=== PATIENT | male | born 1960 | race Caucasian/White ===

== ENCOUNTER 2017-06-18 10:00 | Outpatient (RCR) | payer OTHER | END 2017-07-30 17:53 | disposition home or self-care (01) | LOC: PT 10:00 | DX: M75.101 Unspecified rotator cuff tear or rupture of right shoulder, not specified as traumatic (principal) ==

== ENCOUNTER → 2017-08-12 | Outpatient (CLI) | payer OTHER | LOC: LAB 09:32 | DX: Z00.00 Encounter for general adult medical examination without abnormal findings (principal); Z12.5 Encounter for screening for malignant neoplasm of prostate; Z12.11 Encounter for screening for malignant neoplasm of colon ==

== ENCOUNTER → 2018-03-16 | Outpatient (CLI) | payer OTHER ==
[2018-03-16 14:17] LABS: URINE APPEARANCE CLEAR; URINE BILIRUBIN NEGATIVE (NEGATIVE); URINE BLOOD NEGATIVE (NEGATIVE); URINE COLOR YELLOW; URINE GLUCOSE NEGATIVE (NEGATIVE); URINE KETONE NEGATIVE (NEGATIVE); URINE LEUKOCYTE ESTERASE NEGATIVE (NEGATIVE); URINE NITRATE NEGATIVE (NEGATIVE); URINE PROTEIN(semi-quant) NEGATIVE (NEGATIVE); URINE UROBILINOGEN NORMAL (NORMAL)
== END ==
LOC: LAB 13:25
PROVIDERS: Internal Medicine
DX: R35.0 Frequency of micturition (principal)

== ENCOUNTER → 2018-03-18 | Outpatient (CLI) | payer OTHER ==
[2018-03-18 11:13] LABS: BUN/CREATININE RATIO 29.9 (6.0-26.0); CALCIUM 9.2 mg/dL (8.4-10.2); POTASSIUM 4.1 mmol/L (3.6-5.0)
== END ==
LOC: LAB 10:51
PROVIDERS: Internal Medicine
DX: R73.02 Impaired glucose tolerance (oral) (principal)

== ENCOUNTER 2018-07-01 09:00 | Outpatient (RCR) | payer OTHER | END 2018-07-01 09:30 | disposition home or self-care (01) | LOC: PT 09:00 | DX: M75.121 Complete rotator cuff tear or rupture of right shoulder, not specified as traumatic (principal) ==

== ENCOUNTER → 2018-12-03 | Outpatient (CLI) | payer OTHER ==
[2018-12-03 10:21] LABS: URINE APPEARANCE CLEAR; URINE BILIRUBIN NEGATIVE (NEGATIVE); URINE BLOOD NEGATIVE (NEGATIVE); URINE COLOR YELLOW; URINE GLUCOSE NEGATIVE (NEGATIVE); URINE KETONE NEGATIVE (NEGATIVE); URINE LEUKOCYTE ESTERASE NEGATIVE (NEGATIVE); URINE NITRATE NEGATIVE (NEGATIVE); URINE PROTEIN(semi-quant) TRACE mg/dL (NEGATIVE); URINE UROBILINOGEN NORMAL (NORMAL); URINE WBC 0-1 /hpf (0-3)
== END ==
LOC: LAB 09:12
PROVIDERS: Internal Medicine
DX: Z00.00 Encounter for general adult medical examination without abnormal findings (principal)

== ENCOUNTER → 2019-02-04 | Outpatient (CLI) | payer OTHER | LOC: LAB 07:03 | DX: R97.20 Elevated prostate specific antigen [PSA] (principal) ==

== ENCOUNTER → 2019-03-24 | Outpatient (CLI) | payer OTHER ==
[~2019-03-24] VITALS: Ht 185.4 cm; Wt 100.0 kg
[~2019-03-24] MED LIST: ACETAMINOPHEN-H1 TA2 PO; DONNATAL1 TAB PO; IBU800 M1 PO; LISINOPRIL AND1 TA1 PO; ROSUVASTATIN CA20 MG PO; TESTOSTERO200 MG/1 M IM; ZOLPIDEM TART10 MG PO
[2019-03-24 14:20] LABS: URINE WBC 0 /hpf (0-3)
[2019-03-24 14:22] LABS: BASO # 0.1 (0.02-0.10); EOS # 0.1 (0.04-0.40); EOS % 1.4 % (0.0-4.0); HEMATOCRIT 45.3 % (42.0-52.0); HEMOGLOBIN 14.6 g/dL (13.5-18.0); LYMPH# 1.4 (1.50-4.00); MEAN CELL VOLUME 90 fl (78-100); MEAN CORPUSCULAR HEMOGLOBIN 29 pg (27-31); MEAN CORPUSCULAR HGB CONC 32 g/dL (33-37); MEAN PLATELET VOLUME 10.1 fl (7.4-10.4); MONO # 0.7 (0.20-0.80); NEU # 4.9 (1.40-6.50); PLATELET COUNT 269 K/mm3 (130-400); RED BLOOD COUNT 5.01 M/mm3 (4.20-5.60); RED CELL DISTRIBUTION WIDTH 14.1 % (11.5-14.5); WHITE BLOOD COUNT 7.2 K/mm3 (4.8-10.8)
[2019-03-24 15:26] LABS: ALBUMIN 4.2 g/dL (3.5-5.0); CALCIUM 10.6 mg/dL (8.4-10.2); POTASSIUM 4.1 mmol/L (3.5-5.1); TOTAL BILIRUBIN 0.4 mg/dL (0.2-1.2)
[2019-03-24 15:28] LABS: PROTHROMBIN TIME 8.9 SECONDS (9.0-12.0)
[2019-03-24 15:34] VITALS: BP 117/78
[2019-03-24 17:06] LABS: URINE APPEARANCE CLEAR; URINE BILIRUBIN NEGATIVE (NEGATIVE); URINE BLOOD NEGATIVE (NEGATIVE); URINE COLOR YELLOW; URINE GLUCOSE NEGATIVE (NEGATIVE); URINE KETONE NEGATIVE (NEGATIVE); URINE LEUKOCYTE ESTERASE NEGATIVE (NEGATIVE); URINE NITRATE NEGATIVE (NEGATIVE); URINE PROTEIN(semi-quant) NEGATIVE (NEGATIVE); URINE UROBILINOGEN NORMAL (NORMAL)
== END ==
LOC: AMSURD 14:10
PROVIDERS: Internal Medicine
DX: Z01.818 Encounter for other preprocedural examination (principal); M16.11 Unilateral primary osteoarthritis, right hip

== ENCOUNTER 2019-05-04 10:00 | Outpatient (RCR) | payer OTHER ==
[2019-03-24 15:34] VITALS: BP 117/78
== END 2019-05-04 10:30 | disposition still patient (30) ==
LOC: PT 10:00
DX: M25.551 Pain in right hip (principal); Z96.641 Presence of right artificial hip joint

== ENCOUNTER → 2019-12-22 | Outpatient (CLI) | payer OTHER ==
[2019-03-24 15:34] VITALS: BP 117/78
[2019-12-22 08:32] LABS: HEMATOCRIT 45.9 % (42.0-52.0); HEMOGLOBIN 15.2 g/dL (13.5-18.0); MEAN CELL VOLUME 92 fl (78-100); MEAN CORPUSCULAR HEMOGLOBIN 31 pg (27-31); MEAN CORPUSCULAR HGB CONC 33 g/dL (33-37); MEAN PLATELET VOLUME 10.8 fl (7.4-10.4); PLATELET COUNT 231 K/mm3 (130-400); RED BLOOD COUNT 4.97 M/mm3 (4.20-5.60); RED CELL DISTRIBUTION WIDTH 14.1 % (11.5-14.5); WHITE BLOOD COUNT 5.1 K/mm3 (4.8-10.8)
[2019-12-22 08:37] LABS: PROTHROMBIN TIME 9.4 SECONDS (9.0-12.0)
[2019-12-22 08:38] LABS: ALBUMIN 4.4 g/dL (3.4-4.8); POTASSIUM 3.8 mmol/L (3.5-5.1)
[2019-12-22 08:39] LABS: CALCIUM 9.5 mg/dL (8.3-10.5)
[2019-12-22 08:40] LABS: TOTAL PROTEIN 7.2 g/dL (6.2-8.1)
[2019-12-22 08:42] LABS: TOTAL BILIRUBIN 0.4 mg/dL (0.2-1.2)
[2019-12-22 08:47] LABS: MAGNESIUM 1.93 mg/dL (1.60-2.60)
[2019-12-22 11:10] LABS: LYMPHOCYTE 24 % (20-51); MONOCYTE 13 % (3-10); NEUTROPHILS 56 % (42-75)
[2019-12-22 11:27] LABS: URINE APPEARANCE CLEAR; URINE COLOR YELLOW
[2019-12-22 11:28] LABS: URINE BILIRUBIN NEGATIVE (NEGATIVE); URINE BLOOD NEGATIVE (NEGATIVE); URINE GLUCOSE NEGATIVE (NEGATIVE); URINE KETONE NEGATIVE (NEGATIVE); URINE LEUKOCYTE ESTERASE NEGATIVE (NEGATIVE); URINE NITRATE NEGATIVE (NEGATIVE); URINE PROTEIN(semi-quant) NEGATIVE (NEGATIVE); URINE UROBILINOGEN NORMAL (NORMAL); URINE WBC 0-1 /hpf (0-3)
== END ==
LOC: AMSURD 08:04
PROVIDERS: Internal Medicine
DX: Z01.818 Encounter for other preprocedural examination (principal); M17.0 Bilateral primary osteoarthritis of knee

== ENCOUNTER 2020-01-18 16:00 | Outpatient (RCR) | payer OTHER ==
[2019-03-24 15:34] VITALS: BP 117/78
== END 2020-01-18 16:30 | disposition still patient (30) ==
LOC: PT 16:00
DX: M25.562 Pain in left knee (principal); Z96.652 Presence of left artificial knee joint

== ENCOUNTER 2020-01-18 22:35 | Emergency (ER) | payer OTHER ==
[2020-01-18 23:45] VITALS: BP 126/87
== END 2020-01-18 23:45 | disposition home or self-care (01) ==
LOC: ED 22:35
DX: T78.40XA Allergy, unspecified, initial encounter (principal); I10 Essential (primary) hypertension; E78.5 Hyperlipidemia, unspecified; Z96.652 Presence of left artificial knee joint; Z96.641 Presence of right artificial hip joint
CPT/HCPCS: J2930

== ENCOUNTER 2020-05-10 15:22 | Outpatient (RCR) | payer OTHER | END 2020-05-10 16:00 | disposition still patient (30) | LOC: PT 15:22 | DX: Z47.1 Aftercare following joint replacement surgery (principal); Z96.652 Presence of left artificial knee joint ==

== ENCOUNTER → 2020-05-24 | Outpatient (CLI) | payer OTHER ==
[2020-05-24 08:28] LABS: ALBUMIN 4.4 g/dL (3.4-4.8); POTASSIUM 4.2 mmol/L (3.5-5.1)
[2020-05-24 08:29] LABS: CALCIUM 9.7 mg/dL (8.3-10.5)
[2020-05-24 08:31] LABS: TOTAL PROTEIN 7.5 g/dL (6.2-8.1)
[2020-05-24 08:32] LABS: TOTAL BILIRUBIN 0.5 mg/dL (0.2-1.2)
== END ==
LOC: LAB 07:51
PROVIDERS: Internal Medicine
DX: E78.2 Mixed hyperlipidemia (principal)

== ENCOUNTER → 2020-08-24 | Outpatient (CLI) | payer OTHER ==
[2020-08-24 08:46] LABS: POTASSIUM 3.6 mmol/L (3.5-5.1)
[2020-08-24 08:47] LABS: ALBUMIN 4.4 g/dL (3.4-4.8)
[2020-08-24 08:48] LABS: CALCIUM 9.8 mg/dL (8.3-10.5)
[2020-08-24 08:49] LABS: TOTAL PROTEIN 6.9 g/dL (6.2-8.1)
[2020-08-24 08:51] LABS: TOTAL BILIRUBIN 0.6 mg/dL (0.2-1.2)
== END ==
LOC: LAB 08:08
PROVIDERS: Internal Medicine
DX: E78.2 Mixed hyperlipidemia (principal); K90.9 Intestinal malabsorption, unspecified

== ENCOUNTER → 2020-11-06 | Outpatient (CLI) | payer OTHER ==
[2020-11-06 11:34] LABS: BASO # 0.1 (0.02-0.10); EOS # 0.2 (0.04-0.40); EOS % 3.3 % (0.0-4.0); HEMATOCRIT 49.7 % (42.0-52.0); HEMOGLOBIN 16.5 g/dL (13.5-18.0); LYMPH# 1.4 (1.50-4.00); MEAN CELL VOLUME 91 fl (78-100); MEAN CORPUSCULAR HEMOGLOBIN 30 pg (27-31); MEAN CORPUSCULAR HGB CONC 33 g/dL (33-37); MEAN PLATELET VOLUME 10.3 fl (7.4-10.4); MONO # 0.6 (0.20-0.80); NEU # 3.1 (1.40-6.50); PLATELET COUNT 214 K/mm3 (130-400); RED BLOOD COUNT 5.49 M/mm3 (4.20-5.60); RED CELL DISTRIBUTION WIDTH 13.4 % (11.5-14.5); WHITE BLOOD COUNT 5.4 K/mm3 (4.8-10.8)
[2020-11-06 11:51] LABS: ALBUMIN 4.5 g/dL (3.4-4.8); POTASSIUM 4.6 mmol/L (3.5-5.1)
[2020-11-06 11:54] LABS: TOTAL PROTEIN 7.3 g/dL (6.2-8.1)
[2020-11-06 11:55] LABS: TOTAL BILIRUBIN 0.7 mg/dL (0.2-1.2)
[2020-11-06 12:00] LABS: MAGNESIUM 2.09 mg/dL (1.60-2.60)
[2020-11-06 12:38] LABS: ERYTHROCYTE SEDIMENTATION RATE 1 mm/hr (0-20)
== END ==
LOC: LAB 11:05
PROVIDERS: Internal Medicine
DX: Z00.00 Encounter for general adult medical examination without abnormal findings (principal); Z12.5 Encounter for screening for malignant neoplasm of prostate

== ENCOUNTER → 2021-06-14 | Outpatient (CLI) | payer OTHER ==
[2021-06-14 09:12] LABS: ALBUMIN 4.4 g/dL (3.4-4.8); POTASSIUM 4.1 mmol/L (3.5-5.1)
[2021-06-14 09:13] LABS: CALCIUM 9.9 mg/dL (8.3-10.5)
[2021-06-14 09:14] LABS: TOTAL PROTEIN 7.5 g/dL (6.2-8.1)
[2021-06-14 09:16] LABS: TOTAL BILIRUBIN 0.6 mg/dL (0.2-1.2)
== END ==
LOC: LAB 08:48
PROVIDERS: Family Medicine
DX: M62.830 Muscle spasm of back (principal); R10.11 Right upper quadrant pain

== ENCOUNTER → 2021-07-13 | Outpatient (CLI) | payer OTHER | LOC: LAB 08:20 | DX: Z20.822 Contact with and (suspected) exposure to COVID-19 (principal) ==

== ENCOUNTER → 2022-01-15 | Outpatient (CLI) | payer OTHER ==
[2022-01-15 08:59] LABS: BASO # 0.03 K/mm3 (0.02-0.10); EOS # 0.16 K/mm3 (0.04-0.40); EOS % 2.6 % (0.0-4.0); HEMATOCRIT 49.7 % (42.0-52.0); HEMOGLOBIN 16.5 g/dL (13.5-18.0); LYMPH# 1.38 K/mm3 (1.50-4.00); MEAN CELL VOLUME 92 fl (78-100); MEAN CORPUSCULAR HEMOGLOBIN 30 pg (27-31); MEAN CORPUSCULAR HGB CONC 33 g/dL (33-37); MEAN PLATELET VOLUME 9.7 fl (7.4-10.4); MONO # 0.64 K/mm3 (0.20-0.80); NEU # 4.05 K/mm3 (1.40-6.50); PLATELET COUNT 203 K/mm3 (130-400); RED BLOOD COUNT 5.42 M/mm3 (4.20-5.60); WHITE BLOOD COUNT 6.3 K/mm3 (4.8-10.8)
[2022-01-15 09:46] LABS: POTASSIUM 3.9 mmol/L (3.5-5.1)
[2022-01-15 09:47] LABS: ALBUMIN 4.4 g/dL (3.4-4.8)
[2022-01-15 09:48] LABS: CALCIUM 10.1 mg/dL (8.3-10.5)
[2022-01-15 09:49] LABS: TOTAL PROTEIN 7.1 g/dL (6.2-8.1)
[2022-01-15 09:51] LABS: TOTAL BILIRUBIN 0.8 mg/dL (0.2-1.2)
[2022-01-15 23:45] LABS: TESTOSTERONE 207 ng/dL (221-716)
== END ==
LOC: LAB 08:36
PROVIDERS: Internal Medicine
DX: Z00.00 Encounter for general adult medical examination without abnormal findings (principal); Z12.5 Encounter for screening for malignant neoplasm of prostate; Z12.11 Encounter for screening for malignant neoplasm of colon

== ENCOUNTER → 2022-01-21 | Outpatient (CLI) | payer OTHER | LOC: LAB 08:24 | DX: Z00.00 Encounter for general adult medical examination without abnormal findings (principal); Z12.5 Encounter for screening for malignant neoplasm of prostate; Z12.11 Encounter for screening for malignant neoplasm of colon ==

== ENCOUNTER → 2022-02-19 | Outpatient (CLI) | payer OTHER ==
[2022-02-19 11:47] LABS: ALBUMIN 4.4 g/dL (3.4-4.8); POTASSIUM 4.3 mmol/L (3.5-5.1)
[2022-02-19 11:48] LABS: CALCIUM 9.6 mg/dL (8.3-10.5)
[2022-02-19 11:51] LABS: TOTAL BILIRUBIN 0.8 mg/dL (0.2-1.2)
== END ==
LOC: LAB 10:49 → RAD 10:49
PROVIDERS: Internal Medicine
DX: Z00.00 Encounter for general adult medical examination without abnormal findings (principal); Z12.11 Encounter for screening for malignant neoplasm of colon; N41.0 Acute prostatitis; I10 Essential (primary) hypertension

== ENCOUNTER → 2022-04-08 | Outpatient (CLI) | payer OTHER | LOC: RAD 11:09 | DX: M18.11 Unilateral primary osteoarthritis of first carpometacarpal joint, right hand (principal) ==

== ENCOUNTER → 2022-06-02 | Day surgery (SDC) | payer OTHER | LOC: MSO 07:00 | DX: Z12.11 Encounter for screening for malignant neoplasm of colon (principal); D12.0 Benign neoplasm of cecum; D12.2 Benign neoplasm of ascending colon; K57.30 Diverticulosis of large intestine without perforation or abscess without bleeding | CPT/HCPCS: 00811; J2704; J7120 ==

== ENCOUNTER → 2022-09-08 | Outpatient (CLI) | payer OTHER ==
[2022-09-08 11:21] LABS: BASO # 0.05 K/mm3 (0.02-0.10); EOS # 0.25 K/mm3 (0.04-0.40); EOS % 4.5 % (0.0-4.0); HEMATOCRIT 47.1 % (42.0-52.0); HEMOGLOBIN 15.7 g/dL (13.5-18.0); LYMPH# 1.48 K/mm3 (1.50-4.00); MEAN CELL VOLUME 93 fl (78-100); MEAN CORPUSCULAR HEMOGLOBIN 31 pg (27-31); MEAN CORPUSCULAR HGB CONC 33 g/dL (33-37); MEAN PLATELET VOLUME 10.5 fl (7.4-10.4); MONO # 0.67 K/mm3 (0.20-0.80); NEU # 3.07 K/mm3 (1.40-6.50); PLATELET COUNT 178 K/mm3 (130-400); RED BLOOD COUNT 5.07 M/mm3 (4.20-5.60); RED CELL DISTRIBUTION WIDTH 12.6 % (11.5-14.5); WHITE BLOOD COUNT 5.5 K/mm3 (4.8-10.8)
[2022-09-08 11:28] LABS: POTASSIUM 4.3 mmol/L (3.5-5.1); SODIUM 139 mmol/L (136-145)
[2022-09-08 11:29] LABS: ALBUMIN 4.4 g/dL (3.4-4.8)
[2022-09-08 11:30] LABS: CALCIUM 9.6 mg/dL (8.3-10.5)
[2022-09-08 11:31] LABS: GLUCOSE 93 mg/dL (75-110); TOTAL PROTEIN 6.9 g/dL (6.2-8.1)
[2022-09-08 11:32] LABS: CARBON DIOXIDE 24 mmol/L (23-31)
[2022-09-08 11:33] LABS: TOTAL BILIRUBIN 0.7 mg/dL (0.2-1.2)
[2022-09-08 11:36] LABS: AST-SGOT 20 U/L (5-34)
[2022-09-08 11:38] LABS: ALT/SGPT 28 U/L (0-55); MAGNESIUM 2.12 mg/dL (1.60-2.60)
[2022-09-08 12:39] LABS: ERYTHROCYTE SEDIMENTATION RATE 3 mm/hr (0-20)
== END ==
LOC: LAB 11:01
PROVIDERS: Internal Medicine
DX: I10 Essential (primary) hypertension (principal); E78.2 Mixed hyperlipidemia; R97.8 Other abnormal tumor markers

== ENCOUNTER → 2023-01-17 | Outpatient (CLI) | payer OTHER | LOC: RAD 10:57 | DX: R05.9 Cough, unspecified (principal) ==

== ENCOUNTER → 2023-07-03 | Outpatient (CLI) | payer OTHER ==
[~2023-07-03] MED LIST changes: +CYCLOBENZAPRINE10 M1 PO; +PREDNISONE20 MG PO
== END ==
LOC: CARDREHAB 08:30
DX: R06.00 Dyspnea, unspecified (principal)

== ENCOUNTER 2023-09-02 08:00 | Outpatient (RCR) | payer OTHER | END 2023-10-01 | disposition home or self-care (01) | LOC: PT | DX: M48.00 Spinal stenosis, site unspecified (principal) ==

== ENCOUNTER 2023-10-02 08:00 | Outpatient (RCR) | payer OTHER | END 2023-11-01 | disposition home or self-care (01) | LOC: PT | DX: M48.00 Spinal stenosis, site unspecified (principal) ==

== ENCOUNTER 2023-11-03 08:00 | Outpatient (RCR) | payer OTHER | END 2023-12-02 | disposition home or self-care (01) | LOC: PT | DX: M48.00 Spinal stenosis, site unspecified (principal) | CPT/HCPCS: G0283-GP ==

== ENCOUNTER → 2023-12-30 | Outpatient (CLI) | payer OTHER ==
[2023-12-30 12:13] LABS: BASO # 0.03 K/mm3 (0.02-0.10); EOS # 0.14 K/mm3 (0.04-0.40); EOS % 2.5 % (0.0-4.0); HEMATOCRIT 48.8 % (42.0-52.0); HEMOGLOBIN 15.7 g/dL (13.5-18.0); LYMPH# 1.26 K/mm3 (1.50-4.00); MEAN CELL VOLUME 94 fl (78-100); MEAN CORPUSCULAR HEMOGLOBIN 30 pg (27-31); MEAN CORPUSCULAR HGB CONC 32 g/dL (33-37); MONO # 0.69 K/mm3 (0.20-0.80); NEU # 3.38 K/mm3 (1.40-6.50); PLATELET COUNT 226 K/mm3 (130-400); RED CELL DISTRIBUTION WIDTH 13.3 % (11.5-14.5); WHITE BLOOD COUNT 5.5 K/mm3 (4.8-10.8)
[2023-12-30 12:21] LABS: SODIUM 139 mmol/L (136-145)
[2023-12-30 12:22] LABS: ALBUMIN 4.4 g/dL (3.4-4.8)
[2023-12-30 12:23] LABS: CALCIUM 9.5 mg/dL (8.3-10.5)
[2023-12-30 12:24] LABS: GLUCOSE 94 mg/dL (75-110); TOTAL PROTEIN 7.2 g/dL (6.2-8.1)
[2023-12-30 12:25] LABS: CARBON DIOXIDE 24 mmol/L (23-31)
[2023-12-30 12:26] LABS: TOTAL BILIRUBIN 0.6 mg/dL (0.2-1.2)
[2023-12-30 12:29] LABS: AST-SGOT 22 U/L (5-34)
[2023-12-30 12:31] LABS: ALT/SGPT 28 U/L (0-55); MAGNESIUM 2.37 mg/dL (1.60-2.60)
[2023-12-30 21:56] LABS: FOLLICLE STIMULATING HORMONE 1.6 mIU/mL (1.0-12.0); LUTENIZING HORMONE 0.9 mIU/mL (0.6-12.1); PROLACTIN AMS 8.1 ng/mL (3.5-19.4); TESTOSTERONE 481 ng/dL (221-716)
[2023-12-30 22:07] LABS: HEPATITIS C VIRUS ANTIBODY Negative (Negative)
== END ==
LOC: LAB 11:34
PROVIDERS: Internal Medicine
DX: M25.551 Pain in right hip (principal); Z96.652 Presence of left artificial knee joint

== ENCOUNTER → 2024-10-18 | Outpatient (CLI) | payer MEDICARE, BC ==
[2024-10-18 13:47] LABS: ALBUMIN 4.4 g/dL (3.4-4.8)
[2024-10-18 13:48] LABS: CALCIUM 9.5 mg/dL (8.3-10.5)
[2024-10-18 13:49] LABS: TOTAL PROTEIN 7.1 g/dL (6.2-8.1)
[2024-10-18 13:51] LABS: TOTAL BILIRUBIN 0.6 mg/dL (0.2-1.2)
[2024-10-18 13:52] LABS: BASO # 0.07 K/mm3 (0.02-0.10); EOS # 0.19 K/mm3 (0.04-0.40); EOS % 3.2 % (0.0-4.0); HEMATOCRIT 51.1 % (42.0-52.0); HEMOGLOBIN 16.3 g/dL (13.5-18.0); LYMPH# 1.62 K/mm3 (1.50-4.00); MEAN CELL VOLUME 95 fl (78-100); MEAN CORPUSCULAR HEMOGLOBIN 30 pg (27-31); MEAN CORPUSCULAR HGB CONC 32 g/dL (33-37); MEAN PLATELET VOLUME 10.3 fl (7.4-10.4); MONO # 0.53 K/mm3 (0.20-0.80); PLATELET COUNT 259 K/mm3 (130-400); WHITE BLOOD COUNT 5.9 K/mm3 (4.8-10.8)
[2024-10-18 13:56] LABS: MAGNESIUM 2.24 mg/dL (1.60-2.60)
[2024-10-18 23:45] LABS: TESTOSTERONE 379 ng/dL (221-716)
== END ==
LOC: LAB 13:09
PROVIDERS: Internal Medicine
DX: Z12.11 Encounter for screening for malignant neoplasm of colon (principal); E23.0 Hypopituitarism; I10 Essential (primary) hypertension; E78.2 Mixed hyperlipidemia; K90.9 Intestinal malabsorption, unspecified; R73.9 Hyperglycemia, unspecified; R97.8 Other abnormal tumor markers

== ENCOUNTER → 2024-12-19 | Outpatient (CLI) | payer MEDICARE, BC | LOC: LAB 11:20 | DX: R97.8 Other abnormal tumor markers (principal) ==

== ENCOUNTER → 2025-01-13 | Outpatient (CLI) | payer MEDICARE, BC ==
[2025-01-13 10:10] LABS: BASO # 0.03 K/mm3 (0.02-0.10); EOS # 0.19 K/mm3 (0.04-0.40); EOS % 3.3 % (0.0-4.0); HEMATOCRIT 52.2 % (42.0-52.0); HEMOGLOBIN 17.1 g/dL (13.5-18.0); LYMPH# 1.07 K/mm3 (1.50-4.00); MEAN CELL VOLUME 94 fl (78-100); MEAN CORPUSCULAR HEMOGLOBIN 31 pg (27-31); MEAN CORPUSCULAR HGB CONC 33 g/dL (33-37); MONO # 0.67 K/mm3 (0.20-0.80); NEU # 3.72 K/mm3 (1.40-6.50); PLATELET COUNT 202 K/mm3 (130-400); RED BLOOD COUNT 5.58 M/mm3 (4.20-5.60); RED CELL DISTRIBUTION WIDTH 13.2 % (11.5-14.5); WHITE BLOOD COUNT 5.7 K/mm3 (4.8-10.8)
[2025-01-13 10:14] LABS: ALBUMIN 4.2 g/dL (3.4-4.8)
[2025-01-13 10:15] LABS: CALCIUM 9.5 mg/dL (8.3-10.5)
[2025-01-13 10:17] LABS: TOTAL PROTEIN 7.3 g/dL (6.2-8.1)
[2025-01-13 10:18] LABS: TOTAL BILIRUBIN 0.5 mg/dL (0.2-1.2)
== END ==
LOC: LAB 09:52
DX: Z01.812 Encounter for preprocedural laboratory examination (principal)